=== PATIENT | male | born 1995 | race Caucasian/White ===

== ENCOUNTER 2017-07-06 14:57 | Emergency (ER) | payer OTHER ==
[~2017-07-06] VITALS: Ht 182.9 cm; Wt 104.3 kg
[~2017-07-06 14:57] MED LIST: AMOXICILLIN 50500 MG PO; AMOXICILLIN875 MG PO
[2017-07-06] MEDS ORDERED: VISTARIL 25 MG25 M1 PO (15:12)
[2017-07-06 15:44] LABS: ABSOLUTE BASOPHILS 0.1 thou/uL (0.0-0.2); ABSOLUTE EOSINOPHILS 0.2 thou/uL (0.0-0.7); ABSOLUTE LYMPHOCYTES 2.3 thou/uL (0.8-5.3); ABSOLUTE MONOCYTES 0.8 thou/uL (0.0-1.2); ABSOLUTE NEUTROPHILS 6.1 thou/uL (1.6-8.1); BASOPHILS 1.1 %; EOSINOPHILS 1.8 %; HEMATOCRIT 46.8 % (42.0-52.0); HEMOGLOBIN 15.8 gm/dL (14.0-18.0); LYMPHOCYTES 24.6 %; MCH 29.7 pg (26.0-34.0); MCHC 33.8 g/dL (28.0-37.0); MCV 87.8 fL (80.0-100.0); MONOCYTES 8.1 %; MPV 10.1 fl. (7.2-11.1); NUCLEATED RBCS 0 /100WBC; PLATELET COUNT* 218 thou/uL (150-400); POLYS 64.4 %; RBC 5.33 mil/uL (4.50-6.00); RDW-CV 12.6 % (10.5-14.5); WBC 9.5 thou/uL (4.0-11.0)
[2017-07-06 15:56] LABS: CALCIUM 9.2 mg/dL (8.5-10.1); CREATININE 0.9 mg/dL (0.6-1.3); POTASSIUM 3.7 mmol/L (3.5-5.1)
[2017-07-06 16:01] LABS: ALBUMIN 4.1 g/dL (3.4-5.0); TOTAL BILIRUBIN 0.3 mg/dL (<0.1-1.0); TOTAL PROTEIN 7.9 g/dL (6.4-8.2)
[2017-07-06 16:07] LABS: URINE BILIRUBIN NEGATIVE (Negative); URINE BLOOD NEGATIVE (Negative); URINE CLARITY CLEAR; URINE COLOR YELLOW; URINE GLUCOSE-RANDOM NEGATIVE (Negative); URINE KETONES NEGATIVE (Negative); URINE LEUKOCYTES-REFLEX NEGATIVE (Negative); URINE NITRITE-REFLEX NEGATIVE (Negative); URINE PROTEIN NEGATIVE (Negative); URINE UROBILINOGEN 0.2 E.U./dl (0.2-1.0)
[2017-07-06 16:16] LABS: AMP/METHAMP Negative (Negative); BARBITURATES Negative (Negative); BENZODIAZEPINES Negative (Negative); COCAINE Negative (Negative); METHADONE Negative (Negative); OPIATES Negative (Negative); PCP Negative (Negative); THC Negative (Negative)
[2017-07-06 16:40] VITALS: BP 120/72
--- NOTE | 2017-07-07 12:58 | EKG ---
[place] [address] ELECTROCARDIOGRAM REPORT Name: MARYAM COLEMAN [id number] Admission: 07/06/17 Attend Phys: Discharge: 07/06/17 Date of : [birth year] Report #: [id number] THIS REPORT FOR: //name// [facility] ED Test Date: 2017-07-06 Test Time: 15:08:50 Pat Name: MARYAM COLEMAN Department: Room: Gender: M Supervisor [employer]: FREDDY : 1995 Requested By: Stephanie Monteiro Order Number: [id number] Alex MD: Stanley Virgen Measurements Intervals [place] Rate: 70 P: 31 [place]: 149 QRS: 47 QRSD: 87 T: 47 QT: 368 QTc: 398 Interpretive Statements Sinus arrhythmia No previous ECG available for comparison Electronically Signed On 07-07-2017 12:58:44 SENIOR BIOINFORMATICS SPECIALIST by Stanley Virgen [email or web address] <ELECTRONICALLY SIGNED> By: Stanley Virgen MD, [facility] WITH [facility] 07/07/17 1258 1508 1508 Stanley Virgen MD, FACC /EPI
== END 2017-07-06 16:40 | disposition home or self-care (01) ==
LOC: M.ERS 14:57
PROVIDERS: Physician Assistant
DX: R07.9 Chest pain, unspecified (principal)

== ENCOUNTER 2018-08-13 16:57 | Emergency (ER) | payer OTHER ==
[~2018-08-13] VITALS: Ht 182.9 cm; Wt 132.0 kg
[~2018-08-13 16:57] MED LIST changes: +VISTARIL 25 MG25 M1 PO
[2018-08-13 18:07] LABS: URINE BILIRUBIN NEGATIVE (Negative); URINE BLOOD NEGATIVE (Negative); URINE CLARITY CLEAR; URINE COLOR YELLOW; URINE GLUCOSE-RANDOM NEGATIVE (Negative); URINE KETONES NEGATIVE (Negative); URINE LEUKOCYTES-REFLEX NEGATIVE (Negative); URINE NITRITE-REFLEX NEGATIVE (Negative); URINE PROTEIN NEGATIVE (Negative); URINE UROBILINOGEN 0.2 E.U./dl (0.2-1.0)
[2018-08-13 18:08] LABS: ABSOLUTE BASOPHILS 0.1 thou/uL (0.0-0.2); ABSOLUTE EOSINOPHILS 0.3 thou/uL (0.0-0.7); ABSOLUTE LYMPHOCYTES 1.8 thou/uL (0.8-5.3); ABSOLUTE NEUTROPHILS 6.4 thou/uL (1.6-8.1); EOSINOPHILS 2.9 %; HEMATOCRIT 47.7 % (42.0-52.0); HEMOGLOBIN 16.2 gm/dL (14.0-18.0); LYMPHOCYTES 18.5 %; MCH 29.2 pg (26.0-34.0); MCV 85.9 fL (80.0-100.0); MONOCYTES 10.4 %; MPV 9.7 fl. (7.2-11.1); NUCLEATED RBCS 0 /100WBC; PLATELET COUNT* 233 thou/uL (150-400); POLYS 67.2 %; RBC 5.55 mil/uL (4.50-6.00); RDW-CV 12.9 % (10.5-14.5); WBC 9.5 thou/uL (4.0-11.0)
[2018-08-13 18:27] LABS: ANION GAP 10 mmol/L (7-16); BUN 11 mg/dL (7-18); CHLORIDE 106 mmol/L (98-107); CO2 26 mmol/L (21-32); GLUCOSE 110 mg/dL (70-99); POTASSIUM 3.8 mmol/L (3.5-5.1); SODIUM 142 mmol/L (136-145); TROPONIN-I LEVEL <0.06 ng/mL (<0.06)
[2018-08-13 18:29] LABS: ALKALINE PHOSPHATASE 113 U/L (46-116); NT-PRO BRAIN NAT PEPTIDE 10 pg/mL (<300); SGOT 26 U/L (15-37); SGPT 52 U/L (30-65); TOTAL BILIRUBIN 0.4 mg/dL (<0.1-1.0)
[2018-08-13] MEDS ORDERED: PEPCID20 MG PO (18:51)
[2018-08-13] MEDS ORDERED: VISTARIL 25 MG25 M1 PO (18:51)
[2018-08-13 19:00] VITALS: BP 140/78
--- NOTE | 2018-08-14 14:33 | EKG ---
[place] [address] ELECTROCARDIOGRAM REPORT Name: MARYAM COLEMAN Room: [facility]#: [id number] Admission: 08/13/18 Attend Phys: Discharge: 08/13/18 Date of : [birth year] Report #: [id number] THIS REPORT FOR: //name// [facility] ED Test Date: 2018-08-13 Test Time: 17:01:49 Pat Name: MARYAM COLEMAN Department: Room: Gender: M Migration Specialist: MS : 1995 Requested By: Nina Davies Order Number: [id number] MD: Branden Stevenson Measurements Intervals [place] Rate: 118 P: 47 [place]: 171 QRS: 32 QRSD: 85 T: 61 QT: 305 QTc: 428 Interpretive Statements Sinus tachycardia Nonspecific repol abnormality, diffuse leads Baseline wander in lead(s) I,II,aVR,V1,V3,V4,V5,V6 Compared to ECG 07/06/2017 15:08:50 Early repolarization now present Sinus arrhythmia no longer present Electronically Signed On 08-14-2018 14:33:34 CDT by Branden Stevenson [email or web address] <ELECTRONICALLY SIGNED> By: Branden Stevenson MD, [facility] 08/14/18 1433 1701 1701 Branden Stevenson MD, [facility] /EPI
== END 2018-08-13 19:01 | disposition home or self-care (01) ==
LOC: M.ERS 16:57
PROVIDERS: Nurse Practitioner
DX: K21.9 Gastro-esophageal reflux disease without esophagitis (principal); F41.9 Anxiety disorder, unspecified

== ENCOUNTER 2020-12-01 17:20 | Inpatient (IN) | payer OTHER ==
[2020-11-30 20:30] VITALS: BP 125/75
[~2020-12-01] VITALS: Ht 182.9 cm; Wt 131.1 kg
[~2020-12-01 17:20] MED LIST changes: +PEPCID20 MG PO
[2020-12-01 17:29] VITALS: BP 127/88
[2020-12-01 18:16] LABS: ABSOLUTE BASOPHILS 0.1 thou/uL (0.0-0.2); ABSOLUTE LYMPHOCYTES 1.6 thou/uL (0.8-5.3); ABSOLUTE MONOCYTES 0.8 thou/uL (0.0-1.2); BASOPHILS 1.2 %; EOSINOPHILS 0.1 %; HEMATOCRIT 46.1 % (42.0-52.0); HEMOGLOBIN 15.5 gm/dL (14.0-18.0); LYMPHOCYTES 21.5 %; MCH 28.9 pg (26.0-34.0); MCHC 33.6 g/dL (28.0-37.0); MCV 86.2 fL (80.0-100.0); MONOCYTES 10.5 %; MPV 8.9 fl. (7.2-11.1); NUCLEATED RBCS 0 /100WBC; PLATELET COUNT* 154 thou/uL (150-400); POLYS 66.7 %; RBC 5.34 mil/uL (4.50-6.00); RDW-CV 13.4 % (10.5-14.5); WBC 7.5 thou/uL (4.0-11.0)
[2020-12-01 18:24] LABS: CALCIUM 7.6 mg/dL (8.5-10.1); CREATININE 1.1 mg/dL (0.6-1.3); POTASSIUM 3.9 mmol/L (3.5-5.1)
[2020-12-01 18:35] LABS: ALBUMIN 3.4 g/dL (3.4-5.0); TOTAL BILIRUBIN 0.5 mg/dL (<0.1-1.0); TOTAL PROTEIN 7.5 g/dL (6.4-8.2)
[2020-12-01 22:30] VITALS: BP 122/64
[2020-12-02 02:30] VITALS: BP 129/87
[2020-12-02 06:31] VITALS: BP 135/85
[2020-12-02 08:38] VITALS: BP 128/86
--- NOTE | 2020-12-02 11:40 | EKG ---
[place] [address] ELECTROCARDIOGRAM REPORT Name: MARYAM COLEMAN Room: [place] [address] ADM IN ..#: [id number] Admission: 12/01/20 Attend Phys: David Alvarez, Discharge: Date of : [birth year] Date of Service: 12/01/20 1734 Report #: [id number] THIS REPORT FOR: //name// [facility] ED Test Date: 2020-12-01 Test Time: 17:34:05 Pat Name: MARYAM COLEMAN Department: Room: [facility] Gender: M Icu Specialist: FRANCK : 1995 Requested By: Miguel Davila Order Number: [id number] MD: Fabian Chen Measurements Intervals [place] Rate: 138 P: 40 ND: 143 QRS: 3 QRSD: 81 T: 13 QT: 281 QTc: 426 Interpretive Statements Sinus tachycardia Compared to ECG 08/13/2018 17:01:49 Early repolarization no longer present Electronically Signed On 12-02-2020 11:40:17 CDT by Fabian Chen [email or web address] <ELECTRONICALLY SIGNED> By: Neto Chen MD, [facility] 12/02/20 1140 1734 1734 Neto Chen MD, [facility] /EPI
[2020-12-02 12:28] VITALS: BP 122/75
[2020-12-02 15:52] VITALS: BP 126/75
--- NOTE | 2020-12-02 16:13 | NUR ---
Admitted from HOME BY CAR Admission Assessment MENTAL STATUS UPON ADM A&O X3 Living Arrangements: HOUSE LIVES IN THE BASEMENT Lives with: or they live with patient JOSE COLEMAN MOTHER Support system: Phone number JOSE COLEMAN, PATIENT'S MOTHER [phone] Can patient return to prior living arrangements? YES Activities of daily living: Independent
[2020-12-02 17:41] LABS: ABSOLUTE BASOPHILS 0.1 thou/uL (0.0-0.2); ABSOLUTE MONOCYTES 0.9 thou/uL (0.0-1.2); BASOPHILS 0.7 %; HEMATOCRIT 43.4 % (42.0-52.0); HEMOGLOBIN 14.3 gm/dL (14.0-18.0); LYMPHOCYTES 8.7 %; MCH 28.6 pg (26.0-34.0); MCHC 33.1 g/dL (28.0-37.0); MCV 86.4 fL (80.0-100.0); MONOCYTES 7.8 %; MPV 8.8 fl. (7.2-11.1); NUCLEATED RBCS 0 /100WBC; PLATELET COUNT* 197 thou/uL (150-400); POLYS 82.8 %; RBC 5.02 mil/uL (4.50-6.00); RDW-CV 13.1 % (10.5-14.5)
[2020-12-02 17:52] LABS: APTT 28.4 Seconds (25.0-31.3); PROTIME 10.5 Seconds (9.20-11.50)
[2020-12-02 17:56] LABS: ALBUMIN 2.8 g/dL (3.4-5.0); CREATININE 0.8 mg/dL (0.6-1.3); POTASSIUM 3.8 mmol/L (3.5-5.1); TOTAL BILIRUBIN 0.3 mg/dL (<0.1-1.0); TOTAL PROTEIN 6.8 g/dL (6.4-8.2)
[2020-12-02 19:59] VITALS: BP 136/80
[2020-12-02 23:03] LABS: BE -0.7 mmol/L (-2 to +3); PCO2 30.5 mmHg (35.0-45.0); pH 7.471 (7.340-7.450)
[2020-12-02 23:05] LABS: PO2 48.6 mmHg (75.0-100.0)
[2020-12-03] VITALS: BP 113/67
[2020-12-03 00:16] LABS: INFLUENZA A ANTIGEN Negative (Negative); INFLUENZA B ANTIGEN Negative (Negative)
[2020-12-03 00:20] LABS: URINE BILIRUBIN NEGATIVE (Negative); URINE BLOOD NEGATIVE (Negative); URINE CLARITY CLEAR; URINE COLOR YELLOW; URINE GLUCOSE-RANDOM NEGATIVE (Negative); URINE KETONES NEGATIVE (Negative); URINE LEUKOCYTES NEGATIVE (Negative); URINE NITRITE NEGATIVE (Negative); URINE PROTEIN NEGATIVE (Negative); URINE SPECIFIC GRAVITY 1.015 (1.005-1.030); URINE UROBILINOGEN 0.2 E.U./dl (0.2-1.0)
--- NOTE | 2020-12-03 00:54 | NUR ---
PT AT ONSET OF SHIFT O2 DEMANDS INCREASED OXYEGN UP TO 5L PER NC; PT RESPS 30S, ST RATE 120'S; DR RILEY NOTIFIED ORDERS RECEIVED; CT OF CHEST COMPLETED, MEDS GIVEN; SPOKE WITH PT REGARDING PLASMA; PT VERBALIZED UNDERSTANDING AND AT THIS TIME IS REFUSING CONVALESCENT PLASMA; PT STATED THAT HE WILL FURTHER DISCUSS WITH FAMILY MEMEBER IN MEDICINE PRIOR TO RECEIVING; PT PLACED ON BIPAP CURRENTLY FIO2 80%; ENHANCED ISOLATION PRECAUTIONS MAINTAINED; CALL LIGHT WITHIN REACH WILL CONTINUE TO MONITOR
--- NOTE | 2020-12-03 01:32 | NUR ---
CALL TO DR. GARCES REGARDING PATIENT REQUESTING MEDICATION TO HELP WITH HIS ANXIETY AND SLEEPLESSNESS. AWAITING RETURN CALL.
[2020-12-03 03:20] LABS: HEMATOCRIT 44.5 % (42.0-52.0); HEMOGLOBIN 14.7 gm/dL (14.0-18.0); MCH 28.5 pg (26.0-34.0); MCHC 33.1 g/dL (28.0-37.0); MCV 86.1 fL (80.0-100.0); MPV 8.6 fl. (7.2-11.1); NUCLEATED RBCS 0 /100WBC; PLATELET COUNT* 262 thou/uL (150-400); RBC 5.17 mil/uL (4.50-6.00); RDW-CV 13.4 % (10.5-14.5); WBC 18.7 thou/uL (4.0-11.0)
[2020-12-03 03:43] LABS: ALBUMIN 3.2 g/dL (3.4-5.0); CALCIUM 8.4 mg/dL (8.5-10.1); CREATININE 1.1 mg/dL (0.6-1.3); MAGNESIUM 2.2 mg/dL (1.8-2.4); POTASSIUM 4.1 mmol/L (3.5-5.1); TOTAL BILIRUBIN 0.4 mg/dL (<0.1-1.0); TOTAL PROTEIN 7.5 g/dL (6.4-8.2)
[2020-12-03 04:14] VITALS: BP 120/76
[2020-12-03 08:11] LABS: ABSOLUTE LYMPHOCYTES 1.5 thou/uL (0.8-5.3); ABSOLUTE MONOCYTES 0.4 thou/uL (0.0-1.2); ABSOLUTE NEUTROPHILS 16.8 thou/uL (1.6-8.1)
[2020-12-03 08:27] LABS: PLATELET ESTIMATE ADEQUATE
[2020-12-03 08:48] VITALS: BP 116/75
--- NOTE | 2020-12-03 09:17 | NUR ---
Admission Assessment Admitted from HOME Mental Status upon admission Alert & Oriented x 3 Living Arrangements: Stairs Elevator HOME WITH MOM PATIENT LIVES IN THE BASEMENT, STAIRS Lives with: or they live with patient MOTHER JOSE COLEMAN [phone] Support system: Name Phone number If different than face sheet JOSE COLEMAN [phone] Can patient return to prior living arrangements? Yes Notes: Activities of daily living: Independent BATHING/DRESSING PATIENT CONTINUES TO DRIVE Assistive device: No DME Prior resource use: None Notes: Does patient have a primary care provider? -No SPOKE WITH PATIENT'S MOTHER, SHE DENIES THAT HE HAS EVER NEEDED HOME HEALTH OR DME'S
--- NOTE | 2020-12-03 10:25 | CON ---
[address] [address] CONSULTATION Name: MARYAM COLEMAN Room: [place] [address] ADM IN M.R.#: [id number] Admission: 12/01/20 Attend Phys: David Alvarez MD Discharge: Date of : 95 Report #: [id number] THIS REPORT FOR: cc: IDA - No family physician/PCP IDA - No family physician/PCP Eric Kumar MD ~ DATE OF CONSULTATION: 12/02/2020 REQUESTING PHYSICIAN: Renny Jesus DO. INDICATION FOR CONSULTATION: COVID-19. HISTORY OF PRESENT ILLNESS: This is a 25-year-old gentleman. He does have a history of obesity, body mass index is ____. He has had some reflux in the past. He may have previously undiagnosed obstructive sleep apnea. There is only a limited history of smoking about 5 years in his whole life. The patient now states that he has been sick for more than 8 days. About 8 days ago, he tested himself up with home COVID test and was noted to be positive. He has not been vaccinated for COVID-19. The patient states that, since then, he has been having progressively worsening shortness of breath. He has also been coughing and has had a high-grade fever. He has had nausea, vomiting as well as diarrhea. He has had significant chills. He says he has had chest pain with respiration and coughing as well. Due to these complaints, he eventually came to the Emergency Room yesterday. Initially, he was saturating adequately on 2 liters nasal cannula. He did have significant tachycardia initially with heart rates up to 140 recorded. By the time I saw him this evening, the patient in fact appeared to be more stable and was saturating in the mid 90s on 4 liters nasal cannula with a heart rate about 100. At this time, at night, I noticed that his vitals indicate that he is now tachycardic again, with the heart rate in the high 130s. His nurse also tells me that he has a high-grade fever of 101.5 degrees Fahrenheit now, although I do not see it charted in [facility] [facility] [employer] yet, was also tachypneic with respiratory rate in the high 20s. Note that his BUN and creatinine have remained normal. His proBNP initially was also normal and his CPK was elevated and therefore, he has been appropriately fluid resuscitated by the ER physician. REVIEW OF SYSTEMS: For 12 points is negative, except as mentioned above. PAST MEDICAL HISTORY: Obesity, body mass index ____, gastroesophageal reflux disease, tonsillectomy. SOCIAL HISTORY: He smoked for about 5 years and then discontinued. No known history of heavy alcohol use [place] [address] CONSULTATION Name: MARYAM COLEMAN Room: [address] IN .R.#: [id number] Admission: 12/01/20 Attend Phys: David Alvarez MD Discharge: Date of : 95 Report #: [id number] CURRENT MEDICATIONS: List in [facility] reviewed. [facility]. ALLERGIES: No known drug allergies. FAMILY HISTORY: No pertinent family history known at this time. PHYSICAL EXAMINATION: VITAL SIGNS: He is tachycardic and tachypneic now. At the time of my evaluation, he appeared to be comfortable on 4 liters nasal cannula. See discussion regarding his vitals as above, which I reviewed. HEENT: Head is normocephalic and atraumatic. NECK: Does not show raised JVP. CHEST: Breath sounds are bilaterally equal, decreased. No added sounds. HEART: Regular, no murmur. ABDOMEN: Soft and nontender. LOWER EXTREMITIES: Trace edema, no calf tenderness. SKIN: Dry and intact. NEUROLOGIC: Moves all extremities bilaterally equally and spontaneously with no focal deficit identified. LABORATORY DATA: The patient had a chest x-ray done yesterday and I repeated another chest x-ray now as well. There are extensive bilateral infiltrates, consistent with COVID-19. I am concerned that the patient could potentially be developing early ARDS. The lab work is in [facility] and this is reviewed. However, COVID-19 antigen was negative. ASSESSMENT AND PLAN: 1. Acute hypoxemic respiratory failure, secondary to COVID-19. Continue to titrate oxygen. The patient was given instructions regarding avoiding supine sleep, if possible prone; however, it may be difficult for him. He likely has underlying obstructive sleep apnea. Considering that he is significantly tachycardic and tachypneic, I recommend that we go ahead and place him on BiPAP for tonight and then leave him on BiPAP while asleep and p.r.n. The patient currently is in the Emergency Room and is not in a negative pressure room. We will try and see if we can get him into a negative pressure room soon, so that he could be on a BiPAP. I do want to give him nebulized bronchodilators as well, considering that he is significantly tachycardic. For now, I have only ordered p.r.n. Xopenex. 2. COVID-19. He is on dexamethasone 6 mg daily. For now, I kept the current dose. We will give him an additional dose of 8 mg IV once, considering acute deterioration reported tonight. We will start [place] [address] CONSULTATION Name: MARYAM COLEMAN Room: [place] [address] ADM IN M.R.#: [id number] Admission: 12/01/20 Attend Phys: David Alvarez MD Discharge: Date of : 95 Report #: [id number] recommend going ahead and administering Actemra. Actemra is not available in our hospital today. Hopefully, it will be available tomorrow morning and we will be able to administer. I will go ahead and give him 1 unit of convalescent plasma as well. We will reassess tomorrow and then consider a second unit. 3. Extensive pulmonary infiltrates. He has been sick for more than 8 days. He also has a high-grade fever and therefore, would want to give him broad spectrum antibiotics. I went ahead and ordered doxycycline as well as ceftriaxone. Ceftriaxone, in fact, has already been started by the Emergency Room physician. However, his COVID-19 antigen was negative. However, I will still treat him as COVID-19, he tested positive at home. We will check him for influenza as well. We will do a nasal swab for MRSA and sputum culture as well. 4. Obesity/possible obstructive sleep apnea, see discussion above. 5. Elevated D-dimer/chest discomfort with respirations. We will go ahead and do a CTA chest as well. 6. Elevated CPK/mild rhabdomyolysis. Considering deteriorating respiratory status, I still went ahead and ordered a dose of Lasix. For now, I held his IV fluids, but I ordered a repeat CPK to be added to his labs from this evening. In case the CPK is remaining elevated, then we will give him IV fluids at the same time as giving him diuresis. Note that his initial proBNP from yesterday was not elevated. 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 7. Deep vein thrombosis prophylaxis, intermediate dose Lovenox for now. 8. Clostridium difficile prophylaxis, Lactinex. 9. History of gastroesophageal reflux disease. He currently is on Pepcid. If he fails to improve, then I may consider switching this over to Protonix tomorrow. Thanks for this consultation. <ELECTRONICALLY SIGNED> By: Eric Kumar MD 12/03/20 1025 2207 [id number] juan Kumar MD /nt
--- NOTE | 2020-12-03 12:09 | NUR ---
PHYSICIAN PAGED REGARDING NEED FOR BLOOD CONSENT SIGNATURE FOR PT TO RECEIVE CONVALESCENT PLASMA. DR. BLANCO TO COME TO BEDSIDE TO GET SIGNATURE.
--- NOTE | 2020-12-03 13:31 | NUR ---
CONVALESCENT PLASMA VERIFIED BY THIS RN AND STEPHEN MONTES DE OCA, FURRIER APPRENTICE AT BEDSIDE BY INDEPENDENT VERIFICATION AND GIVEN STARTED AT THIS TIME. SEE REASSESSMENT AND ER BOARDED PT ASSESSMENTS REGARDING VS AND TOLERABILITY OF INFUSION.
--- NOTE | 2020-12-03 15:18 | NUR ---
Patient admitted for COVID-19. Spoke to mother (Milla) over the phone. Patient currently lives in a house with his mother. Patient was independent with ADLS prior to admission. Patient is not currently working and is uninsured. No PCP. PCP list/resource list given to patient. Patient currently is on bipap (FiO2 80%). Patient to start remdesevir, abx and steroids. Mother asked if alexander application is available for help paying for patients hospitalization. Med Assist to follow and screen patient for eligibility. Patient staying through the weekend.
[2020-12-03 15:30] VITALS: BP 129/71
[2020-12-03 17:17] VITALS: BP 127/60
--- NOTE | 2020-12-03 19:52 | NUR ---
PT A&OX4, PLEASANT AND COOPERATIVE, ON 15L HFNC, SR-ST. PT GIVEN INCENTIVE SPIROMETER AND INSTRUCTED ON ITS USE.
[2020-12-04] VITALS (7 sets, daily range): BP systolic 107–170; BP diastolic 63–80
--- NOTE | 2020-12-04 04:50 | NUR ---
PT SLEPT MOST OF SHIFT IN PRONE POSITION. ASSESSMENT DOCUMENTED. MEDS GIVEN PER E-MAR. NO REPORTS OF PAIN. PT ON 15L NC WHILE AWAKE, BIPAP WHILE SLEEPING. NO REPORTS OF PAIN. PT ABLE TO MAKE NEEDS KNOWN. WILL CONTINUE WITH PLAN OF CARE.
[2020-12-04 06:32] LABS: HEMATOCRIT 43.8 % (42.0-52.0); HEMOGLOBIN 14.3 gm/dL (14.0-18.0); MCH 28.2 pg (26.0-34.0); MCHC 32.7 g/dL (28.0-37.0); MCV 86.2 fL (80.0-100.0); MPV 8.5 fl. (7.2-11.1); RBC 5.08 mil/uL (4.50-6.00); RDW-CV 13.6 % (10.5-14.5)
[2020-12-04 07:05] LABS: CALCIUM 8.1 mg/dL (8.5-10.1); CREATININE 0.8 mg/dL (0.6-1.3); POTASSIUM 3.8 mmol/L (3.5-5.1)
--- NOTE | 2020-12-04 19:04 | NUR ---
RECEIVED REPORT AROUND 0715. ASSUMED CARE. VS AND ASSESSMENT CHARTED. MEDS GIVEN PER JUN. HOURLY ROUNDING PERFORMED. IV INTACT. HEART MONITOR ATTACHED AT SR/ST. PT UP ADLIB TOLERATED. NO PAIN THIS SHIFT. CALL LIGHT WITH IN REACH. WILL CONTINUE TO MONITOR.
[2020-12-05] VITALS: BP 123/82
[2020-12-05 04:00] VITALS: BP 116/71
[2020-12-05 06:16] LABS: HEMATOCRIT 41.5 % (42.0-52.0); HEMOGLOBIN 14.2 gm/dL (14.0-18.0); MCH 29.4 pg (26.0-34.0); MCHC 34.2 g/dL (28.0-37.0); MPV 8.2 fl. (7.2-11.1); RBC 4.82 mil/uL (4.50-6.00); RDW-CV 13.1 % (10.5-14.5); WBC 12.7 thou/uL (4.0-11.0)
[2020-12-05 06:44] LABS: ALBUMIN 2.9 g/dL (3.4-5.0); CALCIUM 8.3 mg/dL (8.5-10.1); CREATININE 0.8 mg/dL (0.6-1.3); MAGNESIUM 2.4 mg/dL (1.8-2.4); POTASSIUM 3.7 mmol/L (3.5-5.1)
[2020-12-05 07:03] LABS: TOTAL BILIRUBIN 0.5 mg/dL (<0.1-1.0)
--- NOTE | 2020-12-05 07:25 | NUR ---
ASSUMED CARE OF PT AFTER REPORT AT 1930. PT A&OX4. VSS. PHYSICAL ASSESSMENT COMPLETED AND CHARTED. PT ON 15L HFNC/BIPAP 45%. PT TRACING SR/ST ON TELE. PT UPADLIB. PT DENIES ANY PAIN. CALL LIGHT WITHIN REACH.
[2020-12-05 08:00] VITALS: BP 118/79
[2020-12-05 11:52] VITALS: BP 117/56
[2020-12-05 16:21] VITALS: BP 122/75
--- NOTE | 2020-12-05 17:33 | NUR ---
RECEIVE REPORT AROUND 0715. ASSUMED CARE. VS AND ASSESSMENT CHARTED. IV INTACT RIGHT AC. HEART MONITOR ATTACHED AT SR/ST. MEDS GIVEN PER JUN. HOURLY ROUNDING PERFORMED. SAT UP IN CHAIR THIS SHIFT. PRONED FOR A WHILE THIS SHIFT. 15L HI FLOW. NO PAIN THIS SHIFT. CALL LIGHT WITH IN REACH. WILL CONTINUE TO MONITOR.
[2020-12-05 20:00] VITALS: BP 134/88
[2020-12-06 00:27] VITALS: BP 107/50
[2020-12-06 04:37] VITALS: BP 131/59
[2020-12-06 05:14] LABS: HEMOGLOBIN 14.5 gm/dL (14.0-18.0); MCH 28.8 pg (26.0-34.0); MCHC 33.7 g/dL (28.0-37.0); MCV 85.4 fL (80.0-100.0); MPV 7.9 fl. (7.2-11.1); RBC 5.03 mil/uL (4.50-6.00); RDW-CV 13.2 % (10.5-14.5); WBC 18.4 thou/uL (4.0-11.0)
[2020-12-06 05:28] LABS: CALCIUM 8.7 mg/dL (8.5-10.1); CREATININE 0.9 mg/dL (0.6-1.3); POTASSIUM 3.8 mmol/L (3.5-5.1)
--- NOTE | 2020-12-06 05:51 | NUR ---
ASSUMED CARE OF PT AFTER REPORT AT 1930. PT A&OX4. VSS. PHYSICAL ASSESSMENT COMPLETED AND CHARTED. PT ON 12L HFNC/BIPAP 40%. SOB WITH EXERTION NOTED. PT TRACING SR/ST ON TELE. PT DENIES ANY PAIN. CALL LIGHT WITHIN REACH.
[2020-12-06 08:00] VITALS: BP 121/76
[2020-12-06 12:21] VITALS: BP 11/73
--- NOTE | 2020-12-06 13:52 | NUR ---
Antigen and PCR both negative. Pulm following. Pt on 15L, continue to wean.
[2020-12-06 15:50] VITALS: BP 127/67
--- NOTE | 2020-12-06 17:55 | 2DMMODE ---
[place] [address] 2 D/M-MODE ECHOCARDIOGRAM Name: MARYAM COLEMAN Room: [address] IN [facility]#: [id number] Admission: 12/01/20 Attend Phys: David Alvarez, Discharge: Date of : 95 Date of Service: 12/06/20 1755 Report #: [id number] THIS REPORT FOR: cc: FAM - No family physician/PCP FAM - No family physician/PCP Navin Clarke MD [facility] ~ APPROVED REPORT Study performed: 12/06/2020 16:16:49 EXAM: Comprehensive 2D, Doppler, and color-flow Echocardiogram Patient Location: In-Patient Room #: 104 Status: routine BSA: 2.49 HR: 107 bpm Rhythm: NSR Other Information Study Quality: Good Indications Dyspnea 2D Dimensions IVSd: 8.99 (7-11mm) LVOT Diam: 19.60 (18-24mm) LVDd: 42.00 mm PWd: 8.90 (7-11mm) Ascending Ao: 27.89 (22-36mm) LVDs: 25.22 (25-40mm) Aortic Root: 29.98 mm Volumes Left Atrial Volume (Systole) LA ESV Index: 15.20 mL/m2 Aortic Valve AoV Peak Mack.: 1.11 m/s AO Peak Gr.: 4.95 mmHg LVOT Max P.36 mmHg AO Mean Gr.: 2.79 mmHg LVOT Mean P.69 mmHg LVOT Max V: 1.04 m/s AO V2 VTI: 16.67 cm LVOT Mean V: 0.78 m/s UEMR (VTI): 3.26 cm2 LVOT V1 VTI: 18.00 [place] [address] 2 D/M-MODE ECHOCARDIOGRAM Name: MARYAM COLEMAN Room: [address] [place] .R.#: [id number] Admission: 12/01/20 Attend Phys: David Alvarez, Discharge: Date of : 95 Date of Service: 12/06/20 1755 Report #: [id number] Mitral Valve E/A Ratio: 0.74 MV Decel. Time: 185.90 ms MV E Max Mack.: 0.60 m/s MV PHT: 53.91 ms MVA (PHT): 4.08 cm2 TDI E/Lateral E': 3.53 E/Medial E': 4.62 Medial E' Mack.: 0.13 m/s Lateral E' Mack.: 0.17 m/s Pulmonary Valve PV Peak Mack.: 1.10 m/s PV Peak Gr.: 4.87 mmHg Left Ventricle The left ventricle is normal size. There is normal LV segmental wall motion. There is normal left ventricular wall thickness. Left ventricular systolic function is normal. LVEF is 55-60%. Grade I - abnormal relaxation pattern. Right Ventricle The right ventricle is normal size. The right ventricular systolic function is normal. Atria The left atrium size is normal. The right atrium size is normal. Aortic Valve The aortic valve is normal in structure. No aortic regurgitation is present. There is no aortic valvular stenosis. Mitral Valve The mitral valve is normal in structure. There is no mitral valve regurgitation noted. No evidence of mitral valve stenosis. Tricuspid Valve The tricuspid valve is normal in structure. There is no tricuspid valve regurgitation noted. Pulmonic Valve The pulmonary valve is normal in structure. There is no pulmonic valvular regurgitation[place] [address] 2 D/M-MODE ECHOCARDIOGRAM Name: MARYAM COLEMAN Room: [address] IN [facility]#: [id number] Admission: 12/01/20 Attend Phys: David Alvarez, Discharge: Date of : 95 Date of Service: 12/06/20 1755 Report #: [id number] The aortic root is normal in size. IVC is normal in size and collapses >50% with inspiration. Pericardium There is no pericardial effusion. <Conclusion> The left ventricle is normal size. There is normal left ventricular wall thickness. Left ventricular systolic function is normal. LVEF is 55-60%. Grade I - abnormal relaxation pattern. IVC is normal in size and collapses >50% with inspiration. <ELECTRONICALLY SIGNED> By: Navin Clarke MD, FACC 12/06/201754 54 54 Navin Clarke MD, FACC /INF
--- NOTE | 2020-12-06 19:05 | NUR ---
RECEIVED REPORT AROUND 0715. ASSUMED CARE. VS AND ASSESSMENT CHARTED. IV INTACT FROM THIS AFTERNOON. HEART MONITOR ATTACHED AT SR/ST. MEDS GIVEN PER JUN. HOURLY ROUNDING PERFORMED. NO PAIN. CALL LIGHT WITH IN REACH. WILL CONTINLUE TO MONITOR.
[2020-12-06 20:00] VITALS: BP 117/61
[2020-12-07] VITALS: BP 107/60
[2020-12-07 04:00] VITALS: BP 90/47
--- NOTE | 2020-12-07 05:25 | NUR ---
ASSUMED CARE OF PT AFTER REPORT AT 1930. PT A&OX4. VSS. PHYSICAL ASSESSMENT COMPLETED AND CHARTED. PT ON HFNC-DECREASED O2 TO 10L HFNC FROM 12L-O2 SAT 90-92%. PT REFUSED BIPAP. PT TRACING SR/SB/ST ON TELE. PT UPADLIB. MAINTAINED ON ENHANCED PRECAUTION. CALL LIGHT WITHIN REACH.
[2020-12-07 06:09] LABS: HEMATOCRIT 44.1 % (42.0-52.0); HEMOGLOBIN 15.1 gm/dL (14.0-18.0); MCH 29.6 pg (26.0-34.0); MCHC 34.1 g/dL (28.0-37.0); MCV 86.8 fL (80.0-100.0); MPV 7.9 fl. (7.2-11.1); RBC 5.08 mil/uL (4.50-6.00); RDW-CV 13.2 % (10.5-14.5); WBC 15.5 thou/uL (4.0-11.0)
[2020-12-07 06:13] LABS: CALCIUM 8.8 mg/dL (8.5-10.1); CREATININE 0.8 mg/dL (0.6-1.3); POTASSIUM 3.9 mmol/L (3.5-5.1)
[2020-12-07 08:00] VITALS: BP 93/58
[2020-12-07 12:00] VITALS: BP 97/63
--- NOTE | 2020-12-07 13:58 | NUR ---
Covid negative. On 10L. Per Med Assist Pt is not program eligible/[facility]
--- NOTE | 2020-12-07 14:48 | NUR ---
The patient is sitting in the recliner. Heart rate elevates with activity. Denies pain. No c/o of sob or cp. Call light within reach.
[2020-12-07 16:00] VITALS: BP 99/61
[2020-12-07 20:00] VITALS: BP 114/73
[2020-12-08 00:39] VITALS: BP 118/71
[2020-12-08 03:56] VITALS: BP 98/59
--- NOTE | 2020-12-08 04:39 | NUR ---
ASSUMED CARE OF PT AFTER REPORT AT 1930. PT A&OX4. VSS. PHYSICAL ASSESSMENT COMPLETED AND CHARTED. PT ON 2L HFNC. PT TRACING SR/ST ON TELE. PT UPDLIB. PT DENIES ANY PAIN. CALL LIGHT WITHIN REACH.
[2020-12-08 08:00] VITALS: BP 117/72
[2020-12-08 08:59] LABS: HEMATOCRIT 43.9 % (42.0-52.0); HEMOGLOBIN 14.8 gm/dL (14.0-18.0); MCH 29.2 pg (26.0-34.0); MCHC 33.7 g/dL (28.0-37.0); MCV 86.5 fL (80.0-100.0); MPV 7.8 fl. (7.2-11.1); RBC 5.08 mil/uL (4.50-6.00); RDW-CV 13.3 % (10.5-14.5); WBC 17.2 thou/uL (4.0-11.0)
[2020-12-08 09:16] LABS: CALCIUM 8.5 mg/dL (8.5-10.1); CREATININE 0.8 mg/dL (0.6-1.3)
[2020-12-08 10:11] VITALS: BP 117/72
--- NOTE | 2020-12-08 11:08 | NUR ---
ASSUMED PT CARE AT 0730, PT AOX4, NO C/O PAIN BUT GETS SOA W/ EXERTION. PT WORKED W/ RT AND DIDN'T NEED O2 AT REST OR W/ EXERCISE. DC ORDERS RECEIVED, IV AND BIOMEDICAL ENGINEERING PROFESSOR REMOVED. PT VOICED BEING CONCERNED ABOUT GOING HOME, ENCOURAGED HIM TO CONTINUE USING IS AND TAKING IT SLOW AT HOME WHILE HE CONTINUES TO RECOVER. ENCOURAGED HIM TO SEEK MEDICAL ATTENTION IF HE FEELS LIKE HE'S GETTING WORSE AND ENCOURAGED F/U W/ PCP W/IN A WEEK. PT DC'D BY WC W/ NURSING STAFF AND ALL PAPERWORK AND PERSONAL BELONGINGS TO MOM'S VEHICLE AT APPROX 1055
[2020-12-09 21:06] LABS: ANA INTERPRETATION Negative (())
== END 2020-12-08 10:55 | disposition home or self-care (01) | DRG 177 ==
LOC: M.ERS 17:20 → M.TBA-ER 18:33 → M.ORTHSURG 12-03 17:30
PROVIDERS: Family Medicine; Internal Medicine; Internal Medicine Critical Care Medicine; ADMIT Internal Medicine; ATTEND Internal Medicine
PROC: 5A09357 Assistance with Respiratory Ventilation, Less than 24 Consecutive Hours, Continuous Positive Airway Pressure (ICD-10-PCS; 2020-12-01)
PROC: 5A0935A Assistance with Respiratory Ventilation, Less than 24 Consecutive Hours, High Flow/Velocity Cannula (ICD-10-PCS; 2020-12-01)
PROC: XW033E5 Introduction of Remdesivir Anti-infective into Peripheral Vein, Percutaneous Approach, New Technology Group 5 (ICD-10-PCS; principal; 2020-12-02)
PROC: XW13325 Transfusion of Convalescent Plasma (Nonautologous) into Peripheral Vein, Percutaneous Approach, New Technology Group 5 (ICD-10-PCS; 2020-12-03)
PROC: 5A0935A Assistance with Respiratory Ventilation, Less than 24 Consecutive Hours, High Flow/Velocity Cannula (ICD-10-PCS; 2020-12-03)
PROC: 5A09357 Assistance with Respiratory Ventilation, Less than 24 Consecutive Hours, Continuous Positive Airway Pressure (ICD-10-PCS; 2020-12-03)
PROC: 5A09357 Assistance with Respiratory Ventilation, Less than 24 Consecutive Hours, Continuous Positive Airway Pressure (ICD-10-PCS; 2020-12-04)
PROC: 5A0935A Assistance with Respiratory Ventilation, Less than 24 Consecutive Hours, High Flow/Velocity Cannula (ICD-10-PCS; 2020-12-04)
PROC: 5A09357 Assistance with Respiratory Ventilation, Less than 24 Consecutive Hours, Continuous Positive Airway Pressure (ICD-10-PCS; 2020-12-05)
PROC: 5A0935A Assistance with Respiratory Ventilation, Less than 24 Consecutive Hours, High Flow/Velocity Cannula (ICD-10-PCS; 2020-12-05)
PROC: 5A09357 Assistance with Respiratory Ventilation, Less than 24 Consecutive Hours, Continuous Positive Airway Pressure (ICD-10-PCS; 2020-12-06)
PROC: 5A0935A Assistance with Respiratory Ventilation, Less than 24 Consecutive Hours, High Flow/Velocity Cannula (ICD-10-PCS; 2020-12-06)
PROC: 5A0935A Assistance with Respiratory Ventilation, Less than 24 Consecutive Hours, High Flow/Velocity Cannula (ICD-10-PCS; 2020-12-07)
DX: U07.1 COVID-19 (principal); J96.01 Acute respiratory failure with hypoxia; J12.82 Pneumonia due to coronavirus disease 2019; J15.9 Unspecified bacterial pneumonia; M62.82 Rhabdomyolysis; E66.9 Obesity, unspecified; K21.9 Gastro-esophageal reflux disease without esophagitis; G47.33 Obstructive sleep apnea (adult) (pediatric); F41.9 Anxiety disorder, unspecified; F32.9 Major depressive disorder, single episode, unspecified; I95.1 Orthostatic hypotension; H66.92 Otitis media, unspecified, left ear; Z79.899 Other long term (current) drug therapy; Z68.39 Body mass index [BMI] 39.0-39.9, adult; Z87.891 Personal history of nicotine dependence